=== PATIENT | male | born 1995 | race Caucasian/White ===

== ENCOUNTER 2021-05-24 12:41 | Emergency (ER) | payer OTHER ==
[~2021-05-24] VITALS: Ht 149.9 cm; Wt 51.0 kg
[2021-05-24 13:01] VITALS: BP 128/79
--- NOTE | 2021-05-24 13:04 | PHYS DOC ---
General Adult EDM: Chief Complaint: BACK PAIN OR INJURY HPI: HPI: Patient is a 26-year-old male coming in for examination after a fall last night. Patient states he slipped on ice and fell backwards landing onto his right buttock and lower back. Patient was able to stand up and ambulate afterwards. Patient states he did not get seen because he did not feel that bad but states he had sharp pain in his right back when he was getting up this morning. Patient states he called into work and needs a work note for medical clearance. Patient states the pain is minimal at this time Review of Systems: Review of Systems: All other systems within normal limits except for as noted in the HPI Allergies: Allergies: Allergies Coded Allergies Type Severity Reaction Last Updated Verified No Known Drug Allergies 05/24/21 No Physical Exam: PE: Constitutional: Well developed, well nourished, no acute distress, non-toxic appearance. [] HENT: Normocephalic, atraumatic, bilateral external ears normal, nose normal. [] Eyes: PERRLA, conjunctiva normal, no discharge. [] Neck: No rigidity, supple, no stridor. [] Cardiovascular: Regular rate and rhythm, brisk cap refill [] Lungs & Thorax: Non labored symmetric respirations, no tachypnea or respiratory distress [] Abdomen: Soft, nondistended. Skin: Warm, dry, no erythema, no rash. [] Back: Unremarkable, no step-off deformity, no point tenderness on spine. Extremities: No deformities, range of motion grossly intact, no lower extremity edema [] Neurologic: Alert and oriented X 3, no focal deficits noted. Ambulate with steady gait [] Psychologic: Affect normal, judgement normal, mood normal. [] EKG: EKG: [] Radiology/Procedures: Radiology/Procedures: [] Heart Score: C/O Chest Pain: No Risk Factors: Risk Factors: DM, Current or recent (<one month) smoker, HTN, HLP, family history of CAD, obesity. Risk Scores: Score 0 - 3: 2.5% MACE over next 6 weeks - Discharge Home Score 4 - 6: 20.3% MACE over next 6 weeks - Admit for Clinical Observation Score 7 - 10: 72.7% MACE over next 6 weeks - Early Invasive Strategies Course & Med Decision Making: Course & Med Decision Making Pertinent Labs and Imaging studies reviewed. (See chart for details) [] Melina Disclaimer: Dragalma rosa Disclaimer: This electronic medical record was generated, in whole or in part, using a voice recognition dictation system. Departure Departure: Impression: Primary Impression: Fall Additional Impression: Low back pain Disposition: HOME / SELF CARE / HOMELESS Condition: STABLE Referrals: PCP,OSCAR (PCP) ABY GARCIA MD May 24, 2021 13:04
== END 2021-05-24 13:10 | disposition home or self-care (01) ==
LOC: ER 12:41
DX: M54.59 Other low back pain (principal); W00.0XXA Fall on same level due to ice and snow, initial encounter; Y93.89 Activity, other specified; Y92.89 Other specified places as the place of occurrence of the external cause; Y99.8 Other external cause status
CPT/HCPCS: 99284

== ENCOUNTER 2021-06-14 17:55 | Emergency (ER) | payer OTHER ==
[~2021-06-14] VITALS: Ht 180.3 cm; Wt 75.2 kg
[2021-06-14 18:25] VITALS: BP 120/75
--- NOTE | 2021-06-14 18:39 | PHYS DOC ---
Past History Additional Past Medical Histor: ADD, HX of pelvic fractures(fell from [place]) Past Surgical History: Other Additional Past Surgical Histo: UMBILICAL HERNIA REPAIR Alcohol Use: Occasionally Adult General Chief Complaint Chief Complaint: CONGESTION HPI HPI Patient is a 26-year-old male with a past medical history significant for seasonal allergies who presents with nasal congestion. Denies recent travels, traumas, illness, fevers, chest pain, shortness of breath, abdominal pain, nausea, vomiting, diarrhea. States his nasal congestion was really getting to him today at work and left 2 hours early and came in to get a work note. States he is eating and drinking normally. States he is making urine and stool normally for him. States he did not take any medications today. Review of Systems Review of Systems Review of systems otherwise unremarkable except noted in HPI Allergies Allergies Allergies Coded Allergies Type Severity Reaction Last Updated Verified No Known Drug Allergies 05/24/21 No Physical Exam Physical Exam Constitutional: Well developed, well nourished, no acute distress, non-toxic appearance. [] HENT: Normocephalic, atraumatic, bilateral external ears normal, oropharynx moist, no posterior oropharyngeal erythema or edema, no oral exudates, nasal congestion Eyes:conjunctiva normal, no discharge. [] Neck: Normal range of motion, no tenderness, supple, no stridor. [] Cardiovascular:Heart rate regular rhythm, no murmur [] Lungs & Thorax: Bilateral breath sounds clear to auscultation [] Abdomen: soft, no tenderness, no masses, no pulsatile masses. [] Skin: Warm, dry, no erythema, no rash. [] Neurologic: Alert and oriented X 3, normal motor function, normal sensory function, no focal deficits noted. [] Psychologic: Affect normal, judgement normal, mood normal. [] EKG EKG [] Radiology/Procedures Radiology/Procedures [] Heart Score C/O Chest Pain: No Risk Factors: Risk Factors: DM, Current or recent (<one month) smoker, HTN, HLP, family history of CAD, obesity. Risk Scores: Risk Factors: DM, Current or recent (<one month) smoker, HTN, HLP, family history of CAD, obesity. Course & Med Decision Making Course & Med Decision Making Patient is a 26-year-old male who presents with nasal congestion requesting Benadryl and a work note Vital signs not concerning. Physical exam noted above. Given Benadryl and work note. Advised on symptom control at home for seasonal allergies. Advised to follow-up soon as you can with his primary care physician Gave return precautions to the ED. Patient grateful, verbalized understanding and agreed with plan of discharge. [] Dragon Disclaimer Dragon Disclaimer This electronic medical record was generated, in whole or in part, using a voice recognition dictation system. Departure Departure: Impression: Primary Impression: Seasonal allergies Disposition: HOME / SELF CARE / HOMELESS Condition: STABLE Referrals: PCP,OSCAR (PCP) ARTHUR GRIDER MD Patient Instructions: Allergic Rhinitis Additional Instructions: Thank you for coming into the emergency department tonight allowing us to take care of you. Please read the attached information carefully to go over things we discussed. You can begin a Benadryl and or Zyrtec/Claritin regimen for your seasonal allergies. You can also use your Flonase. Please follow-up as soon as you can with your primary care physician update on your ED visit and set up a follow-up for reevaluation. Please come back with new or concerning symptoms as discussed CODIE ANDERS MD Jun 14, 2021 18:39
[2021-06-14] MEDS ORDERED: diphenhydrAMINE HCL 25 MG CAPSULE PO ONE (18:45)
== END 2021-06-14 18:45 | disposition home or self-care (01) ==
LOC: ER 17:55
DX: J30.2 Other seasonal allergic rhinitis (principal)
CPT/HCPCS: 99282